=== PATIENT | female | born 1990 | race Hispanic/Latino ===

== ENCOUNTER 2017-02-25 01:37 | Inpatient (IN) | payer BC ==
[2017-02-25 02:10] VITALS: BMI 32.5
[2017-02-25] MEDS: Lactated Ringer's 1,000 ML IV SCH ×3 (02:50→14:44)
[2017-02-25] MEDS ORDERED: HYDROcodone/Acetaminophen 5/325 mg Tablet PO PRN ×2 (02:55)
[2017-02-25] MEDS ORDERED: Ibuprofen 800 MG TAB PO PRN (02:55)
[2017-02-25] MEDS ORDERED: Misoprostol 200 MCG TAB PR PRN (02:55)
[2017-02-25] MEDS ORDERED: Acetaminophen 500 MG TAB PO PRN (02:55)
[2017-02-25] MEDS ORDERED: Carboprost 250 MCG/ML AMP IM PRN (02:55)
[2017-02-25] MEDS ORDERED: Promethazine HCl 25 MG/ML VIAL IM PRN ×2 (02:55→06:34)
[2017-02-25] MEDS ORDERED: Diphenoxylate HCl/Atropine Tablet PO PRN ×2 (02:55)
[2017-02-25] MEDS ORDERED: LR / Pitocin 40 units/1000 ml 1,000 ML IV PRN (02:55)
[2017-02-25] MEDS ORDERED: Ondansetron HCl/PF 4 MG/2 ML Vial IVP PRN ×2 (02:55→06:34)
[2017-02-25] MEDS ORDERED: Lidocaine 1% (PF) 30 ML VIAL SC PRN (02:55)
[2017-02-25] MEDS ORDERED: LR 500 ML/Oxytocin 10 units 500 ML IV SCH (03:00)
[2017-02-25 03:36] LABS: Mean Corpuscular HGB CONC 35.4 g/dL (32.0-36.0); Mean Corpuscular Hemoglobin 33.4 pg (27.0-31.0); Mean Corpuscular Volume 94.4 fl (81.0-99.0); Mean Platelet Volume 10.5 fL (7.4-10.4); Platelet Count 133 thou/uL (130-400); RBC Distribution Width 12.9 % (11.5-14.5); Red Blood Cell (RBC) Count 3.58 mill/uL (4.20-5.40); White Blood Cell (WBC) Count 8.7 thou/uL (4.8-10.8)
[2017-02-25 04:22] LABS: HBSAg Index 0.22 S/CO (0-0.99); Hep B Surf Ag Non-Reactive S/CO (NonReactive)
[2017-02-25] MEDS ORDERED: Fentanyl 4 mcg/Marc 0.1% Cadd 100 ML ONE (06:05)
[2017-02-25] MEDS ORDERED: Acetaminophen 325 MG TAB PO PRN (06:34)
[2017-02-25] MEDS ORDERED: Naloxone HCl 0.4 mg/ml Vial IVP PRN ×2 (06:34)
[2017-02-25] MEDS ORDERED: diphenhydrAMINE 50 MG/ML VIAL IVP PRN (06:34)
[2017-02-25] MEDS ORDERED: Lactated Ringer's 500 ML IV PRN (06:34)
[2017-02-25] MEDS ORDERED: Eucerin (Mineral Oil/Petrolatum,White) 30 gm Jar TOP PRN (06:34)
[2017-02-25] MEDS ORDERED: ePHEDrine/0.9% NaCl/PF SYRINGE 50 mg/10 ml SLOW IVP PRN (06:34)
[2017-02-25] MEDS: Fentanyl 4mcg/Marcaine 0.1% Cassette 100 ML EPIDURAL SCH ×2 (06:41→13:55)
[2017-02-25 06:44] LABS: Syphilis Antibody Nonreactive (Nonreactive); Syphilis Antibody Index 0.03 S/CO (<1.00 Non-Reactive)
[2017-02-25] MEDS ORDERED: Communication Order-Pharmacy FS SCH (06:45)
[2017-02-25] MEDS ORDERED: Bupivacaine/Epinephrine 0.25% 30 ML VIAL ONE (23:00)
[2017-02-25] MEDS ORDERED: Bupivacaine HCl 0.5%/Epinephrine 1:200,000/PF 30 ml Vial ONE (23:00)
[2017-02-26] MEDS ORDERED: Bisacodyl 10 MG SUPP PR PRN (00:40)
[2017-02-26] MEDS ORDERED: HYDROcodone/Acetaminophen 5/325 mg Tablet PO PRN (00:40)
[2017-02-26] MEDS ORDERED: Lanolin Ointment 7 GM TUBE TOP PRN (00:40)
[2017-02-26] MEDS ORDERED: Milk Of Magnesia 30 ML UDCUP PO PRN (00:40)
[2017-02-26] MEDS ORDERED: Ondansetron HCl/PF 4 MG/2 ML Vial IVP PRN (00:40)
[2017-02-26] MEDS ORDERED: Acetaminophen/Codeine 30-300mg Tablet PO PRN (00:40)
[2017-02-26] MEDS ORDERED: LR / Pitocin 40 units/1000 ml 1,000 ML IV SCH (00:40)
[2017-02-26] MEDS ORDERED: Benzocaine/Menthol 20-0.5% 60 ML CAN TOP PRN (00:40)
[2017-02-26] MEDS ORDERED: Ibuprofen 800 MG TAB PO SCH (01:00)
[2017-02-26] MEDS ORDERED: Prenatal Vitamin 1 TAB PO SCH (01:00)
[2017-02-26] MEDS ORDERED: Docusate Calcium (SURFAK) 240 MG CAP PO SCH (01:00)
[2017-02-26] MEDS ORDERED: Adacel (T-DAP) 0.5 ML VIAL IM ONE (01:00)
[2017-02-26] MEDS ORDERED: Ferrous Sulfate 325 MG TAB PO SCH (01:00)
[2017-02-26 06:20] LABS: Hemoglobin 10.8 g/dL (12.0-16.0); Mean Corpuscular HGB CONC 34.2 g/dL (32.0-36.0); Mean Corpuscular Hemoglobin 32.7 pg (27.0-31.0); Mean Corpuscular Volume 95.6 fl (81.0-99.0); Mean Platelet Volume 9.9 fL (7.4-10.4); Platelet Count 102 thou/uL (130-400); Red Blood Cell (RBC) Count 3.29 mill/uL (4.20-5.40); White Blood Cell (WBC) Count 11.2 thou/uL (4.8-10.8)
[2017-02-26] MEDS: Docusate Calcium (SURFAK) 240 MG CAP PO SCH ×2 (08:51→21:17)
[2017-02-26] MEDS: Prenatal Vitamin 1 TAB PO SCH (08:51)
[2017-02-26] MEDS: Ferrous Sulfate 325 MG TAB PO SCH ×2 (08:52→17:48)
[2017-02-26] MEDS: Ibuprofen 800 MG TAB PO SCH ×2 (14:28→21:17)
[2017-02-27 01:55] VITALS: TEMP 98
[2017-02-27] MEDS: Ibuprofen 800 MG TAB PO SCH (06:06)
[2017-02-27 08:36] VITALS: BP 109/55
[2017-02-27] MEDS: Ferrous Sulfate 325 MG TAB PO SCH (09:12)
[2017-02-27] MEDS: Prenatal Vitamin 1 TAB PO SCH (09:12)
[2017-02-27] MEDS: Docusate Calcium (SURFAK) 240 MG CAP PO SCH (09:13)
== END 2017-02-27 11:50 | disposition home or self-care (01) | DRG 775 ==
LOC: L&D/OP 01:37 → L&D 03:12 → 3SW 20:38
PROVIDERS: ADMIT Family Medicine; ATTEND Family Medicine
PROC: 10E0XZZ Delivery of Products of Conception, External Approach (ICD-10-PCS; principal; 2017-02-25)
PROC: 0KQM0ZZ Repair Perineum Muscle, Open Approach (ICD-10-PCS; 2017-02-25)
PROC: 3E033VJ Introduction of Other Hormone into Peripheral Vein, Percutaneous Approach (ICD-10-PCS; 2017-02-25)
DX: O70.1 Second degree perineal laceration during delivery (principal); Z37.0 Single live birth; Z3A.39 39 weeks gestation of pregnancy
CPT/HCPCS: 36415; 51702; 85027; 86780; 87340; 99285; J0670; J2001; J7120